=== PATIENT | female | born 1990 | race Caucasian/White ===

== ENCOUNTER 2022-08-11 08:44 | Inpatient (IN) ==
--- NOTE | 2022-07-22 12:15 | PAT Medication Instructions ---
Medication Instructions Date of Service July 22, 2022 Home Medications albuterol sulfate 90 mcg/actuation aerosol inhaler 1 inh inhalation QID PRN sob gabapentin 800 mg tablet 800 mg PO TID 07/21/22 methocarbamol 500 mg tablet 500 mg PO QID 07/21/22 DO NOT take the morning of surgery methocarbamol 500 mg tablet 500 mg PO QID Take morning of surgery With a small sip of water, OTHERWISE NOTHING TO EAT OR DRINK AFTER MIDNIGHT: albuterol sulfate 90 mcg/actuation aerosol inhaler 1 inh inhalation QID PRN sob (use if needed; please bring with you to hospital day of surgery if possible) gabapentin 800 mg tablet 800 mg PO TID Take evening before surgery gabapentin 800 mg tablet 800 mg PO TID methocarbamol 500 mg tablet 500 mg PO QID Other Notes If you have any questions please call us at [phone] or [phone] or [phone] or [phone]
--- NOTE | 2022-07-29 10:49 | Anesthesiology Consultation ---
Date of Service July 29, 2022 Assessment & Plan (1) Encounter for pre-operative examination: - COVID screening: Per assessment on 07/29: No known COVID-19 positive contacts or current COVID-19 related symptoms. Travel screen negative. At surgeon discretion if preop Covid testing being done. - Check test AM DOS - PONV: Scope patch ordered for AM DOS Chart Review Chart Review: Acceptable Risk for Surgery and Patient seen in Pre Admission Testing Teaching & Discussion Pre-Anesthesia Teaching/Discussion Notes: Instructed NPO after midnight before surgery,except medications with 15 cc of water. Medication instructions provided according to the [facility] guidelines. History Surgery Operation Date: 08/11/22 12:25 Proposed Procedures p L5-S1 Decompression and Fusion, L4-L5 Hardware Removal, Spinal Cord Monitoring - Ehsan Smith, Height/Weight Height: 5 ft 6 in Weight: 116 kg Allergies Allergy/AdvReac Type Severity Reaction Status Date / Time human papillomavirus Allergy swelling, Verified 07/21/22 12:16 vaccine, quadr burning at [From Gardasil (PF)] injection site Iodinated Contrast Media Allergy cardiac Verified 07/29/22 11:06 arrest requiring defibrillator (approximately 2009) tramadol Allergy Hives Verified 07/21/22 12:16 Medications Home Medications Medication Instructions Recorded Confirmed Last Taken albuterol sulfate 90 mcg/actuation 1 inh inhalation QID PRN sob 07/21/22 07/21/22 Unknown aerosol inhaler gabapentin 800 mg tablet 800 mg PO TID 07/21/22 07/21/22 Unknown methocarbamol 500 mg tablet 500 mg PO QID 07/21/22 07/21/22 Unknown Past Medical History Medical History (Updated 07/29/22 @ 11:25 by Silvia Pang) Anxiety Asthma Cardiac murmur As child, no murmur noted at PAT visit 07/29/22 DDD (degenerative disc disease) Fatty liver Morbid obesity with BMI of 40.0-44.9, adult Exercise / Class Metabolic Activity II 4-5 Yardwork/Stairs/Walk up hill Past Family History Family History Mother PONV (postoperative nausea and vomiting) Past Surgical History Surgical History History of History of cholecystectomy History of colonoscopy History of discectomy History of esophagogastroduodenoscopy (EGD) History of lumbar fusion 2018 ([facility]) History of tonsillectomy and adenoidectomy PONV (postoperative nausea and vomiting) Past Anesthesia History No Hx of Anesthesia Complications (except PONV) and No Family Hx of Anesthesia Complications (except mother PONV) History of PONV No Hx of Motion Sickness and History of PONV (post-op nausea with several surgeries, single episode post-op vomiting) Social History Smoking Status: Former smoker Do You Dip or Chew Tobacco: No Smoking End Date: Quit 3 years ago Hx Alcohol Use: No Hx Substance Use: No substance use type: does not use Review of Systems Patient denies chest pain, shortness of breath, dyspnea on exertion, fever, chills, cough, wheezing, palpitations. Physical Exam Vital Signs VITALS BP 118/83 P 79 TEMP 98.2 SP02 95%RA RESP 16 PHYSICAL Full cervical extension range of motion. Full TMJ range of motion. TMD 3 finger breaths Mallampati Score 1 Dentition: several missing (sides) Lungs: clear throughout to auscultation Cardiac: regular rate and rhythm, no murmurs noted Spine: normal Carotid arteries: negative bruit Extremities: no edema Lab Results Anesthesia Preop Results Results Anesthesia Widget: WBC 8.79 K/ul (4.8-10.8) 07/29/22 Hgb 13.7 g/dl (12.0-16.0) 07/29/22 Hct 41.9 % (34.1-44.9) 07/29/22 Plt 387 K/uL (130-400) 07/29/22 Na 140 mmol/L (136-145) 07/29/22 K 4.0 mmol/L (3.5-5.1) 07/29/22 Cl 102 mmol/L (98-107) 07/29/22 CO2 34 mmol/L (21-32) H 07/29/22 BUN 8 mg/dl (6-23) 07/29/22 Creat 0.68 mg/dl (0.6-1.2) 07/29/22 Glucose Level 84 mg/dl (70-99(Fasting)) 07/29/22 PT 10.3 Seconds (9.0-12.0) 07/29/22 PTT 26.6 Seconds (21.0-31.0) 07/29/22 INR 1.0 (0.9-1.1) 07/29/22 Urine Color Yellow 07/29/22 Urine Appearance Clear (Clear) 07/29/22 Urine pH 6.0 (4.5-7.5) 07/29/22 Urine Specific Loman 1.012 (1.000-1.030) 07/29/22 Urine Protein Negative (Negative) 07/29/22 Urine Glucose (UA) Negative (Negative) 07/29/22 Urine Ketones Negative (Negative) 07/29/22 Urine Blood Negative (Negative) 07/29/22 Urine Nitrite Negative (Negative) 07/29/22 Urine Bilirubin Negative (Negative) 07/29/22 Urine Urobilinogen Negative (Negative) 07/29/22 Urine Leukocyte Esterase Negative (Negative) 07/29/22 Blood Type O Positive 07/29/22 Antibody Screen NEGATIVE 07/29/22 Testing Electrocardiogram Date: 07/29/22 NSR with sinus arrhythmia at 73bpm. Chest X-Ray Date: 07/29/22 Findings: + NAD COVID-19 Risk Screen Screening Information COVID-19 Screen Date: 07/29/22 Exposure 21 Days Family/Household +COVID Last 21 Days: No Exposure 10 Days Any COVID Exposure Last 10 Days: No Symptoms Last 10 Days Experienced COVID Sx Last 10 Days: No + COVID 0-90 Days COVID + in Last 0-90 Days: No
[~2022-08-11 08:44] MED LIST: ACETAMINOPHEN 500 MG TAB PO SCH; CeleBREX 200 MG CAP PO SCH; GABAPENTIN 900 MG DOSE PO SCH; LR 15ML/HR IV SCH; SCOPOLAMINE 1 MG TDSY TD SCH; ceFAZolin 2000MG 2,000 MG/15 ML SYR IV SCH
[2022-08-11] MEDS ORDERED: ATROPINE SULFATE 0.1 MG/ML 10ML SYR IV PRN (10:07)
[2022-08-11] MEDS ORDERED: ePHEDrine sulfate 50 MG/ML AMP IV PRN (10:07)
[2022-08-11] MEDS ORDERED: ONDANSETRON INJ 2 MG/ML 2 ML VIAL IV PRN ×2 (10:07→15:28)
--- NOTE | 2022-08-11 11:02 | History & Physical Bridge Note ---
Date of Service August 11, 2022 History & Physical Bridge Note I have examined the patient, reviewed the History & Physical and in the interval since the performance of the History & Physical I have noted the following changes of clinical significance: no changes noted
--- NOTE | 2022-08-11 11:03 | History & Physical Report ---
Date of Service August 11, 2022 Assessment & Plan (1) Neurogenic claudication due to lumbar spinal stenosis: Plan: L5-S1 decompression fusion, L4-L5 hardware removal History of Present Illness Chief Complaint: Back and leg pain Primary Care Provider: Lelia Linares MD This is a 32-year-old female presents with chronic persistent back and leg pain and failing course of nonoperative care she is here for surgical invention. Allergies Allergy/AdvReac Type Severity Reaction Status Date / Time coconut Allergy Severe Swelling Verified 08/11/22 09:14 of Lip/Tongue/Throat Iodinated Contrast Media Allergy Severe cardiac Verified 08/11/22 09:14 arrest requiring defibrillator (approximately 2009) human papillomavirus Allergy swelling, Verified 08/11/22 09:10 vaccine, quadr burning at [From Gardasil (PF)] injection site tramadol Allergy Hives Verified 08/11/22 09:10 Home Medications Medication Instructions Recorded Confirmed Type albuterol sulfate 90 mcg/actuation 1 inh inhalation QID PRN sob 07/21/22 08/11/22 History aerosol inhaler gabapentin 800 mg tablet 800 mg PO TID 07/21/22 08/11/22 History methocarbamol 500 mg tablet 500 mg PO QID 07/21/22 08/11/22 History Past Med/Surg History Medical History (Updated 08/11/22 @ 11:02 by Ehsan Smith DO) Anxiety Asthma Cardiac murmur As child, no murmur noted at PAT visit 07/29/22 DDD (degenerative disc disease) Fatty liver Morbid obesity with BMI of 40.0-44.9, adult Surgical History History of History of cholecystectomy History of colonoscopy History of discectomy History of esophagogastroduodenoscopy (EGD) History of lumbar fusion 2017 ([facility]) History of tonsillectomy and adenoidectomy PONV (postoperative nausea and vomiting) Family History Mother PONV (postoperative nausea and vomiting) Social History Smoking Status: Former smoker Smoking End Date: Quit 3 years ago; Second Hand Exposure: No; Do You Dip or Chew Tobacco: No; Tobacco Cessation Education Requested by Patient: No Hx Alcohol Use: No Hx Substance Use: No Preferred Language: Welsh Communication Ability: Effective Interior Design Teacher Required: No Beliefs That Will Affect Care: None Current Living Situation: Spouse Feels Safe at Home: Yes Safety Concerns: Feels Safe At This Time Assistive Devices: Glasses Physical Exam Physical Exam: Patient is alert and oriented Heart regular rhythm Lungs clear Results & Data Results & Data ([facility]) Vital Signs (Past 12 Hours) Vital Signs Temp Pulse Resp BP Pulse Ox O2 Del Method 08/11/22 09:14 36.9 C 77 18 124/81 96 Room Air
[2022-08-11] MEDS ORDERED: ceFAZolin 330 MG/ML 1 GM VIAL ONE (11:17)
[2022-08-11] MEDS ORDERED: BUPIVACAINE/EPINEPHRINE 0.25% 1:200,000 30 ML VIAL ONE (11:17)
[2022-08-11] MEDS ORDERED: MIDAZOLAM HCL 1 MG/ML 2ML VIAL ONE (11:27)
[2022-08-11] MEDS ORDERED: fentaNYL citrate 100 MCG/2 ML VIAL ONE (11:28)
[2022-08-11] MEDS ORDERED: HYDROmorphone INJ 2 MG/ML SYR/VIAL ONE (12:24)
[2022-08-11] MEDS ORDERED: FLOSEAL HEMOSTATIC MATRIX 10ML TOP ONE (12:46)
[2022-08-11] MEDS ORDERED: PROPOFOL IV EMULSION 10 MG/ML 20 ML VIAL IV ONE (12:54)
[2022-08-11] MEDS ORDERED: LIDOCAINE 2% MPF LOCAL 5 ML VIAL INFIL ONE (12:54)
[2022-08-11] MEDS ORDERED: DEXAMETHASONE SOD INJ 4 MG/ML VIAL ONE (12:54)
[2022-08-11] MEDS ORDERED: ROCURONIUM BROMIDE 10 MG/ML 5 ML VIAL IV ONE ×2 (12:54→13:20)
[2022-08-11] MEDS ORDERED: NEOSTIGMINE METHYLSULFATE 1 MG/ML 10ML VIAL ONE (13:32)
[2022-08-11] MEDS ORDERED: ONDANSETRON INJ 2 MG/ML 2 ML VIAL ONE (13:32)
[2022-08-11] MEDS ORDERED: GLYCOPYRROLATE 0.2 MG/ML VIAL ONE (13:32)
--- NOTE | 2022-08-11 13:34 | Operative Report ---
Post Operative Report Pre & Post Diagnosis Operation Date: 08/11/22 10:35 Pre-Op Diagnosis: Neurogenic Claudication due to Lumbar Spinal Stenosis Morbid obesity Lumbar disc herniation Post-Op Diagnosis: Same I identified the patient and participated in the time-out.: Yes Procedure Operation Date: 08/11/22 10:35 Actual Procedures #1 removal of posterior instrumentation L4-L5. #2 exploration of fusion L4-L5 #3 Limited motion bilaterally facetectomy and foraminotomies L5-S1. #4 posterior spinal fusion L5-S1. #5 placement posterior instrumentation L5-S1. #6 interbody fusion L5-S1. #7 placement Spira 12 x 26 mm cage at L5-S1. #8 placement likely locally harvested autograft in the posterior gutters. #9 placement of I factor with vtoss interbody space and posterior lateral gutters. Surgeon Ehsan Smith, DO Tower Helper Shelia Latham Estimated Blood Loss 50 Findings See Below The patient is 5 foot 6 weighing over 114 kg with a BMI in excess of 40. Patient's body was taken to be a significant technical difficulty required to base retractors along instruments in order to perform her procedure. This at least 50% increased the operative time. Specimens None Indications This is a 32-year-old female that presents with left wrist diagnosis after failed course of nonoperative care she is here for the above-mentioned procedure.. Description of Procedure Patient was met with identified informed consent obtained. Patient was then taken to the operative suite underwent patient placed in a prone position on the João table top of some frame. All bony promises well-padded eyes inspected to ensure no external pressure placed upon it. This point the lumbar spine was prepped and draped in normal sterile fashion. Sharp dissection with the assistance of a cardiac performed to exposing the posterior instrumentation to the L4-L5 and the lamina of L5 and sacral ala bilaterally. Procedure remove the hardware bilaterally at L4-L5 explored the fusion mass noting it to be mature and intact. Then form a complete laminectomy of L5 including bilateral medial facetectomy and foraminotomies to address severe spinal stenosis. There is also massive central disc herniation that was addressed. Pedicle screws were then placed in the L5 and S1 levels bilaterally with assistance of fluoroscopy and the properly sized devon placed. Bilateral transforaminal approach on the right discectomy of L5-S1 was performed endplates corrected to subcortical bleeding bone and a 12 x 26 mm Spira cage with I factor tapped in position. The rods and locked into final position bilaterally. The transverse processes of L5 and sacral ala burred to subcortical bleeding bone I factor combined with locally harvested morselized autograft was placed in the posterior gutters. 15 round JENNY drain inserted. The incision was then closed with 1 Vicryl in the fascia 2-0 Vicryl subcutaneously and 4 Monocryl for final skin closure. Steri-Strips sterile dressings placed. Patient awakened taken to PACU in stable condition. Please note spinal cord monitoring was utilized at the procedure no changes noted. Last Shelia Latham was present at the entire procedure on the patient positioning complex portions of the surgery and possible closure. I attest to the content of the Intraoperative Record and any orders documented therein. Any exceptions are noted below.
[2022-08-11] MEDS: fentaNYL citrate 100 MCG/2 ML VIAL IV PRN ×3 (13:57→14:05)
[2022-08-11] MEDS: HYDROmorphone INJ 2 MG/ML SYR/VIAL IV PRN ×2 (14:20→14:35)
--- NOTE | 2022-08-11 14:33 | Fluoroscopy Report ---
FL lumbar spine 2-3V CLINICAL HISTORY: L5-S1 Decompression/Fusion, L4-L5 hardware removal COMPARISON STUDY: None. FLUOROSCOPY TIME: 23.8 seconds. EXPOSURE DOSE: 37.51 mGy FLUOROSCOPIC IMAGES: 2 FINDINGS: Fluoroscopy was provided during removal of the L4 and L5 screws. Previous L4-L5 interbody s pacer is noted. Interval L5-S1 discectomy with interbody spacer placement of posterior decompression is noted. Hardware is intact. IMPRESSION: Fluoroscopy provided during hardware removal and L5-S1 discectomy, posterior decompressi on and bilateral pedicle screw fusion. ACT 112: Negative or not required by law. Electronically signed by: Ulisses Paul M.D. 08/11/2022 2:32 PM
[2022-08-11] MEDS ORDERED: LORazepam 2 MG/1 ML VIAL IV STA (14:34)
[2022-08-11] MEDS ORDERED: LORazepam 2 MG/1 ML VIAL ONE (14:38)
[2022-08-11] MEDS: CHECK SCOPOLAMINE PATCH PLACEMENT SCH ×2 (14:45→16:23)
[2022-08-11] MEDS ORDERED: ACETAMINOPHEN 500 MG TAB PO PRN (15:28)
[2022-08-11] MEDS ORDERED: MAGNESIUM HYDROXIDE SUSP 30 ML UDC PO PRN (15:28)
[2022-08-11] MEDS ORDERED: LORazepam 2 MG/1 ML VIAL IV PRN (15:28)
[2022-08-11] MEDS ORDERED: LORazepam 0.5 MG TAB PO PRN (15:28)
[2022-08-11] MEDS ORDERED: ONDANSETRON 4 MG OD TAB PO PRN (15:28)
[2022-08-11] MEDS ORDERED: FAMOTIDINE 20 MG TAB PO PRN (15:28)
[2022-08-11] MEDS ORDERED: bisacodyL 10 MG SUPP PR PRN (15:28)
[2022-08-11] MEDS ORDERED: METOCLOPRAMIDE HCL INJ 5 MG/ML 2 ML VIAL IV PRN (15:28)
[2022-08-11] MEDS ORDERED: DO NOT ADMINISTER FLU VACCINE PRN (15:28)
[2022-08-11] MEDS ORDERED: ALBUTEROL HFA 8 GM INHALER INH PRN (15:28)
[2022-08-11] MEDS ORDERED: hydrOXYzine HCl 25 MG TAB PO PRN (15:28)
[2022-08-11] MEDS ORDERED: ALUMINUM/MAGNESIUM SUSP 30 ML UDC PO PRN (15:28)
[2022-08-11] MEDS ORDERED: DO NOT ADMINISTER PNEUMOCOCCAL VACCINE PRN (15:28)
[2022-08-11] MEDS ORDERED: diphenhydrAMINE Capsule 25 MG CAP PO PRN (15:28)
[2022-08-11] MEDS ORDERED: SOD PHOSPHATE/SOD BIPHOSPHATE ENEMA 132 ML BTL PR PRN (15:28)
[2022-08-11] MEDS ORDERED: PROMETHAZINE HCL 12.5 MG in SODIUM CHLORIDE 0.9% 50 ML IV PRN (15:28)
[2022-08-11] MEDS ORDERED: NALOXONE HCL 0.4 MG/1 ML VIAL/CARP IV PRN (15:28)
[2022-08-11] MEDS ORDERED: ACETAMINOPHEN 1,000 MG/100 ML VIAL IV PRN (15:28)
[2022-08-11] MEDS: dexAMETHasone 6 MG in SYRINGE 0 ML IV SCH ×2 (16:23→22:50)
[2022-08-11] MEDS: LACTATED RINGER'S 1,000 ML IV SCH ×2 (16:23→21:43)
[2022-08-11] MEDS: GABAPENTIN 800 MG TAB PO SCH ×2 (16:24→21:39)
[2022-08-11] MEDS: METHOCARBAMOL 500 MG TABLET PO SCH ×2 (16:33→21:40)
[2022-08-11] MEDS: HYDROmorphone INJ 0.5 MG/0.5 ML SYR IV PRN (16:36)
--- NOTE | 2022-08-11 17:02 | Anesthesiology Progress Note ---
Date of Service August 11, 2022 Anesthesia Post Procedure Vital Signs Vital Signs: Temp Pulse Pulse Resp BP Pulse Ox O2 Del Method 08/11/22 16:27 36.8 C 78 18 138/66 95 Nasal Cannula 08/11/22 16:05 36.7 C 62 17 111/70 97 Nasal Cannula 08/11/22 15:28 36.8 C 76 18 122/68 95 Nasal Cannula 08/11/22 14:50 52 L 12 133/80 92 Nasal Cannula 08/11/22 14:40 59 L 21 154/82 H 100 Nasal Cannula 08/11/22 14:30 71 21 185/85 H 100 Nasal Cannula 08/11/22 14:20 72 15 150/84 H 100 Nasal Cannula 08/11/22 14:10 68 22 149/96 H 100 Nasal Cannula 08/11/22 14:00 73 23 159/101 H 93 Nasal Cannula 08/11/22 13:51 36.0 C L 80 22 142/88 H 95 Oxymask 08/11/22 09:14 36.9 C 77 18 124/81 96 Room Air O2 Flow Rate 08/11/22 16:27 1 08/11/22 16:05 1 08/11/22 15:28 1 08/11/22 14:50 4 08/11/22 14:40 4 08/11/22 14:30 4 08/11/22 14:20 4 08/11/22 14:10 4 08/11/22 14:00 4 08/11/22 13:51 5 08/11/22 09:14 Pain Intensity Lower Back: Pain Intensity: 10 Transfer of Care Handoff Completed per policy Notes Mental Status: alert / awake / arousable and participated in evaluation Patient Amnestic to Procedure: Yes Nausea / Vomiting: adequately controlled Pain: adequately controlled Airway Patency, RR, SpO2: stable & adequate BP & HR: stable & adequate Hydration State: stable & adequate Anesthetic Complications: no major complications apparent and Pt Satisfied with anesthetic care
[2022-08-11] MEDS: ceFAZolin 2000MG 2,000 MG/15 ML SYR IV SCH (19:33)
[2022-08-11] MEDS: HYDROmorphone INJ 1 MG/ML SYRINGE IV PRN ×2 (19:33→22:49)
[2022-08-11] MEDS: DOCUSATE SODIUM/SENNA 50/8.6MG TAB PO SCH (21:39)
[2022-08-11] MEDS: oxyCODONE HCL IR 5 MG TAB (IMMEDIATE RELEASE) PO PRN (21:48)
[2022-08-12] MEDS: HYDROmorphone INJ 1 MG/ML SYRINGE IV PRN ×3 (03:10→20:21)
[2022-08-12] MEDS: ceFAZolin 2000MG 2,000 MG/15 ML SYR IV SCH (03:10)
[2022-08-12] MEDS: oxyCODONE HCL IR 5 MG TAB (IMMEDIATE RELEASE) PO PRN ×5 (03:43→22:33)
[2022-08-12] MEDS: POLYETHYLENE (MIRALAX) 17 GM PACK PO SCH ×3 (06:02→17:25)
[2022-08-12 06:47] LABS: Basophils # (auto) 0.01 K/uL (0-0.2); Basophils % (auto) 0.1 %; Hematocrit (blood only) 36.7 % (37.0-47.0); Hemoglobin 11.9 g/dl (12.0-16.0); Immature Granulocytes # (auto) 0.04 K/uL (0.01-0.20); Immature Granulocytes % (auto) 0.4 %; Lymphocytes # (auto) 1.02 K/uL (1.2-3.4); Lymphocytes % (auto) 10.3 %; Mean Corpuscular Hemoglobin 28.3 pg (25.0-34.0); Mean Corpuscular Hgb Conc 32.4 g/dL (32.0-36.0); Mean Corpuscular Volume 87.2 fL (80.0-100.0); Mean Platelet Volume 10.8 fL (9.4-12.4); Monocytes # (auto) 0.29 K/uL (0.11-0.59); Monocytes % (auto) 2.9 %; Neutrophils # (auto) 8.51 K/uL (1.40-6.50); Neutrophils % (auto) 86.3 %; Platelet Count 277 K/uL (130-400); RDW Coefficient of Variation 12.7 % (11.5-14.5); RDW Standard Deviation 40.4 fL (36.4-46.3); Red Blood Count 4.21 M/uL (4.20-5.40); White Blood Count 9.87 K/ul (4.8-10.8)
[2022-08-12] MEDS: dexAMETHasone 6 MG in SYRINGE 0 ML IV SCH (07:29)
[2022-08-12] MEDS: METHOCARBAMOL 500 MG TABLET PO SCH ×4 (07:30→20:21)
[2022-08-12] MEDS: GABAPENTIN 800 MG TAB PO SCH ×3 (07:30→20:21)
--- NOTE | 2022-08-12 08:17 | Orthopedic Progress Note ---
Date of Service August 12, 2022 Assessment & Plan (1) Neurogenic claudication due to lumbar spinal stenosis: Plan: At this time we will initiate physical therapy monitor JENNY operatively discharge home next day or so. Admission and Anticipated Discharge Date Admission Date: August 11, 2022 Subjective Back pain controlled leg symptoms improved Physical Exam Physical Exam: Patient is in bed. Peers comfortable. Specimen to testing. Results & Data ([facility]) Vital Signs (Past 12 Hours) Vital Signs Temp Pulse Resp BP BP Pulse Ox O2 Del Method 08/12/22 07:36 36.8 C 80 18 122/79 98 Room Air 08/12/22 03:14 37 C 84 20 104/61 98 Room Air 08/11/22 22:25 36.8 C 81 18 112/73 95 Room Air 08/11/22 20:22 37.3 C 75 20 115/72 95 Room Air
[2022-08-12 08:24] LABS: BUN Creatinine Ratio 13.6 (10-20); Creatinine Clr Calc Pharmacy 175.3 ml/min; Est GFR (African American) 139.6 ml/min; Est GFR (Non-African American) 120.4 ml/min
[2022-08-12] MEDS: HYDROmorphone INJ 0.5 MG/0.5 ML SYR IV PRN ×2 (10:06→15:50)
[2022-08-12] MEDS: DOCUSATE SODIUM/SENNA 50/8.6MG TAB PO SCH (20:21)
[2022-08-13] MEDS: oxyCODONE HCL IR 5 MG TAB (IMMEDIATE RELEASE) PO PRN ×3 (04:38→12:59)
[2022-08-13] MEDS: METHOCARBAMOL 500 MG TABLET PO SCH (08:37)
[2022-08-13] MEDS: GABAPENTIN 800 MG TAB PO SCH (08:37)
--- NOTE | 2022-08-13 09:44 | Discharge Summary ---
Date of Service August 13, 2022 Admission HPI Per Admitting Provider This is a 32-year-old female presents with chronic persistent back and leg pain and failing course of nonoperative care she is here for surgical invention. Principal Diagnosis Lumbar spinal stenosis with neurogenic claudication Discharge Data Allergies Allergy/AdvReac Type Severity Reaction Status Date / Time coconut Allergy Severe Swelling Verified 08/11/22 09:14 of Lip/Tongue/Throat Iodinated Contrast Media Allergy Severe cardiac Verified 08/11/22 09:14 arrest requiring defibrillator (approximately 2009) human papillomavirus Allergy swelling, Verified 08/11/22 09:10 vaccine, quadr burning at [From Gardasil (PF)] injection site tramadol Allergy Hives Verified 08/11/22 09:10 Procedures Performed Operation Date: 08/11/22 10:35 Actual Procedures p L5-S1 Decompression and Fusion, Spinal Cord Monitoring(Not Applicable) - Ehsan Smith DO s L4-L5 Hardware Removal,(Not Applicable) - Ehsan Smith DO Ordered Studies 08/11/22 [place] lumbar spine 2-3V Routine Hospital Course (1) Neurogenic claudication due to lumbar spinal stenosis: Patient with lumbar decompression fusion at [facility] orthopedic for postoperative. Postop day 1 she was up and ambulating progress postop day #2. Pain controlled. Excellent strength testing. JENNY drain decreasing appropriately. Subsequent discharge home. Discharge orders and instructions found in chart for further review. Total Time Total Time Spent Total Time Spent (In Minutes): 20 minutes Discharge Plan Discharge Items Patient Disposition: Home - Self-Care Reason For Visit: POST OP Discharge Diagnosis: Lumbar spinal stenosis with radiculopathy Activity: As commented below Non-emergency contact: Primary Care Provider Call non-emergency contact if: you have any medication questions Follow-up/Referrals: Lelia Linares MD [Primary Care Provider] - Diet: Regular Addtl Attending Provider Instructions: ACTIVITY RECOMMENDATIONS: SELF CARE INSTRUCTIONS AFTER THORACIC/LUMBAR FUSIONS 1. You may walk to your tolerance. It is good exercise for your legs and back. Expect some back and intermittent leg aches and pains. 2. You may perform "counter-top" level activities (make a sandwich, angelika with a project, etc.). 3. No bending or lifting of more than 10 pounds or back twisting of any nature (roll like a log when turning in bed). 4. You may ride in a car for 20-30 minutes at a time. No driving until after your first visit with your doctor. 5. Frequent changes of position and restricting sitting to 30 minutes at a time will help limit the amount of back spasms and stiffness you may experience. 6. You may discontinue the use of ambulatory aids (cane, crutches, etc.) once your strength and confidence allow. 7. You may way inspector the shower and let water strike your incision when you arrive home at least once daily. Do not take a tub bath, sit in a hot tub or go into a swimming pool until after your first recheck in the office. SPECIAL CARE INSTRUCTIONS: VERY IMPORTANT TO READ AND REVIEW A. Your surgical incision has been closed with a cosmetic suture under the skin that will dissolve in about 6 weeks. In 14 days, you can use a pair of clean scissors and cut the suture that is left outside of the skin at the ends of your incision. 1. The small skin tapes can be removed 7 days after surgery if they have not fallen off by that point. 2. You may keep the wound open to air as much as possible to promote healing after post-op day number 5 unless told otherwise by your doctor. 3. If you think the wound looks like it is becoming infected (redness or worsening drainage) and/or you are experiencing fever, chill or worsening back pain and muscle spasms, contact the office so that we may evaluate you as soon as possible. B. Complications are uncommon, but please contact us if you have any signs or symptoms of: 1. wound infection (fever higher than 102.5 degrees F, redness, separation of wound, drainage, or increasing pain from the incision) 2. blood clots in legs (pain, swelling, redness and warmth in legs) 3. urinary tract infection (fever higher than 102.5 degrees F, burning upon urination or increased frequency of urination) 4. nerve problems (inability to walk on your toes or heels, numbness, loss of bowel or bladder control) 5. any other symptoms that concern you C. Please call the office at if you have any concerns or questions about your operation or recovery. D. No smoking! Smoking drastically decreases the chance of a solid fusion. E. Do not take any anti-inflammatory medications (Indocin, Advil, Motrin, Aspirin, Naprosyn, etc.) as these may inhibit the chance of a solid fusion. Tylenol is okay to take for pain. MANAGING PAIN AFTER SPINAL SURGERY 1. Narcotic medication is intended for short-term use and will be provided for surgical pain. Surgical pain usually lasts for a period of 4-6 weeks. Narcotic medication includes Percocet, Vicodin, Darvocet, Tylenol #3 or Lortab. 2. Longer-term pain is more appropriately treated with non-narcotic medication such as Tylenol ES. 3. Muscle spasm is not appropriately treated with narcotics. Muscle relaxers such as Soma, Flexeril or Skelaxin can be used along with Tylenol ES. 4. Remember that we all live with some "aches and pains". This is not unusual or uncommon after an injury or as we get older. a. Back pain is expected and may include muscle spasms for 4 to 6 weeks after surgery. The pain should gradually improve. If the pain worsens for no apparent reason, please contact the office. b. Intermittent leg pain may also be experienced and should not be concerned about unless it worsens for no apparent reason. If so, please contact the office. 5. We will provide appropriate medication within the normal guidelines of their prescribed use. We will also be very cautious and aware of potential abuse and extended duration of patients' medication needs. a. Pain medications are for your comfort and to assist with sleep and rest so that the tissue can heal. They are not provided in order to return to normal activity and should not be used through the day. To do so or worsening pain at night can result from ongoing tissue damage and development of tolerance to the prescribed medicine. 6. Please allow 2-3 days to process refills. Prescriptions will not be mailed but must be picked up at the office. FOLLOW UP VISIT: Keep your scheduled follow-up appointment. Any questions, please call the office at . Pending Studies at Discharge: No Stand-Alone Forms: [employer], Smoking Cessation Medications and DC Order Prescriptions: New oxycodone 5 mg tablet 5 mg PO Q6H PRN (Reason: pain, severe) Qty: 30 0RF Continued methocarbamol 500 mg Tablet 500 mg PO QID gabapentin 800 mg Tablet 800 mg PO TID albuterol sulfate 90 mcg/actuation Hfa Aerosol Inhaler 1 inh INHALATION QID PRN (Reason: sob) Discharge Orders: Discharge Order (Routine); Ordered 08/13/22 Ordered By: Ehsan Smith Admission Data Admit Date/Time: 08/11/22 13:38 Attending Provider: Ehsan Smith Admit Provider: Ehsan Smith Primary Care Provider: Lelia Linares
[2022-08-13] MEDS: HYDROmorphone INJ 1 MG/ML SYRINGE IV PRN (10:02)
[2022-08-13] MEDS: HYDROmorphone INJ 0.5 MG/0.5 ML SYR IV PRN (12:59)
== END 2022-08-13 13:20 | disposition home or self-care (01) | DRG 454 ==
LOC: ASU 08:44 → 3E 13:38

== ENCOUNTER 2022-12-01 09:57 | Observation (INO) ==
--- NOTE | 2022-11-26 14:33 | Anesthesiology Consultation ---
Date of Service November 26, 2022 Assessment & Plan (1) Encounter for pre-operative examination: Chart Review Chart Review: Acceptable Risk for Surgery (pending negative COVID antigen test prior to day of surgery) and Patient NOT seen in Pre Admission Testing Most Recent Anesthesia Experience: 08/11/22 Lumbar Decompression/Fusion, hardware removal: GA: MAC#3, ETT#7, GrView1, atraumatic attempt x 1 COVID screening: Per PAT nursing assessment on 11/26/22, No known COVID-19 positive contacts. Pt did have mild symptoms 'mid september 2022' and tested positive for COVID via home test. She is also reporting recent 'low grade fevers on and off' as well as current nasal congestion. D/W and pt will complete a COVID antigen test prior to surgery to ensure that current sx are not related to a current COVID infestion. Travel screen negative. Patient NOT vacci nated for Covid. BMP to be done AM of surgery History Surgery Operation Date: 12/01/22 13:45 Proposed Procedures p Lumbar Incision and Drainage - Ehsan Smith DO Height/Weight Height: 5 ft 6 in Weight: 113.398 kg Allergies Allergy/AdvReac Type Severity Reaction Status Date / Time coconut Allergy Severe Swelling Verified 11/26/22 13:11 of Lip/Tongue/Throat Iodinated Contrast Media Allergy Severe cardiac Verified 11/26/22 13:11 arrest requiring defibrillator (approximately 2009) human papillomavirus Allergy Intermediate swelling, Verified 11/26/22 13:11 vaccine, quadr burning at [From Gardasil (PF)] injection site tramadol Allergy Intermediate Hives Verified 11/26/22 13:11 Medications Home Medications Medication Instructions Recorded Confirmed Last Taken albuterol sulfate 90 mcg/actuation 1 inh inhalation QID PRN sob 07/21/22 11/26/22 Unknown aerosol inhaler gabapentin 800 mg tablet 800 mg PO TID 07/21/22 11/26/22 08/10/22 21:00 desvenlafaxine succinate 50 mg 50 mg PO QAM 11/26/22 11/26/22 Unknown tablet,extended release 24 hr (Pristiq) meloxicam 7.5 mg tablet 15 mg PO QPM 11/26/22 11/26/22 Unknown methocarbamol 750 mg tablet 750 mg PO QID 11/26/22 11/26/22 Unknown Past Medical History Medical History (Updated 11/26/22 @ 14:30 by Mona Owens PA-C) Anxiety Asthma Cardiac murmur As child, no murmur noted at PAT visit 07/29/22 DDD (degenerative disc disease) Fatty liver History of COVID-19 x3--last diagnosed middle of 09/2022 via HOME test--lost smell/taste, congestion/cough, headache, full body aches/fatigue: all symptoms have resolved Morbid obesity with BMI of 40.0-44.9, adult Postoperative complication postop seroma formation from 08/11/22 lumbar surgery (reason for 11/2022 surgery) Past Family History Family History Mother PONV (postoperative nausea and vomiting) Past Surgical History Surgical History (Updated 11/26/22 @ 14:30 by Mona Owens PA-C) History of History of cholecystectomy History of colonoscopy History of discectomy History of esophagogastroduodenoscopy (EGD) History of lumbar fusion x2--last 08/11/22 @ [facility] Dr. Smith (GA: MAC#3, ETT#7, GrView1, atraumatic attempt x 1); prior was 2017 @[facility] History of tonsillectomy and adenoidectomy PONV (postoperative nausea and vomiting) Social History Smoking Status: Current some day smoker tobacco type: e-cigarettes Smoking cigarettes per day: vaps intermittently (advised on policy) Do You Dip or Chew Tobacco: No Hx Alcohol Use: No Hx Substance Use: No substance use type: does not use Testing Laboratory Results 11/24/22: WBC: 8.56 H/H: 13.3/43.5 PLATELETS: 335 Electrocardiogram Date: 07/29/22 NSR with sinus arrhythmia, 73bpm Chest X-Ray Date: 07/29/22 Findings: + NAD
[~2022-12-01 09:57] MED LIST changes: -SCOPOLAMINE 1 MG TDSY TD SCH
[2022-12-01] MEDS ORDERED: ROCURONIUM BROMIDE 10 MG/ML 5 ML VIAL IV ONE (10:35)
[2022-12-01] MEDS ORDERED: PROPOFOL IV EMULSION 10 MG/ML 20 ML VIAL IV ONE (10:35)
[2022-12-01] MEDS ORDERED: DEXAMETHASONE SOD INJ 4 MG/ML VIAL ONE (10:35)
[2022-12-01] MEDS ORDERED: ONDANSETRON INJ 2 MG/ML 2 ML VIAL ONE (10:35)
[2022-12-01] MEDS ORDERED: MIDAZOLAM HCL 1 MG/ML 2ML VIAL ONE (10:35)
[2022-12-01] MEDS ORDERED: fentaNYL citrate PF 100 MCG/2 ML VIAL ONE (10:35)
[2022-12-01] MEDS ORDERED: LIDOCAINE 2% 2 ML VIAL/AMP(20MG/ML) INFIL ONE (10:35)
[2022-12-01 10:49] LABS: Calcium 9.1 mg/dl (8.6-10.3); Potassium 4.2 mmol/L (3.5-5.1)
[2022-12-01 10:55] LABS: BUN Creatinine Ratio 16.2 (10-20); Creatinine Clr Calc Pharmacy 156.2 ml/min; Est GFR (African American) 133.2 ml/min; Est GFR (Non-African American) 114.9 ml/min; Pregnancy Test, Serum Negative (Negative)
[2022-12-01] MEDS ORDERED: PROMETHAZINE HCL 6.25 MG in SODIUM CHLORIDE 0.9% 50 ML IV PRN (11:20)
[2022-12-01] MEDS ORDERED: ATROPINE SULFATE 0.1 MG/ML 10ML SYR IV PRN (11:20)
[2022-12-01] MEDS ORDERED: ONDANSETRON INJ 2 MG/ML 2 ML VIAL IV PRN ×2 (11:20→15:10)
[2022-12-01] MEDS ORDERED: ePHEDrine sulfate 50 MG/ML AMP IV PRN (11:20)
[2022-12-01] MEDS ORDERED: ePHEDrine sulfate 50 MG/ML AMP ONE (11:21)
--- NOTE | 2022-12-01 11:57 | History & Physical Bridge Note ---
Date of Service December 01, 2022 History & Physical Bridge Note I have examined the patient, reviewed the History & Physical and in the interval since the performance of the History & Physical I have noted the following changes of clinical significance: no changes noted
--- NOTE | 2022-12-01 11:58 | History & Physical Report ---
Date of Service December 01, 2022 Assessment & Plan (1) Neurogenic claudication due to lumbar spinal stenosis: Plan: Lumbar incision and drainage History of Present Illness Chief Complaint: Chronic postop back pain Primary Care Provider: Lelia Linares MD This is a 32-year-old female status post decompression fusion with continued pain and high inflammatory markers concerning for infection. She is here for I&D. Allergies Allergy/AdvReac Type Severity Reaction Status Date / Time coconut Allergy Severe Swelling Verified 12/01/22 10:23 of Lip/Tongue/Throat Iodinated Contrast Media Allergy Severe cardiac Verified 12/01/22 10:23 arrest requiring defibrillator (approximately 2009) human papillomavirus Allergy Intermediate swelling, Verified 12/01/22 10:23 vaccine, quadr burning at [From Gardasil (PF)] injection site tramadol Allergy Intermediate Hives Verified 12/01/22 10:23 Home Medications Medication Instructions Recorded Confirmed Type albuterol sulfate 90 mcg/actuation 1 inh inhalation QID PRN sob 07/21/22 12/01/22 History aerosol inhaler gabapentin 800 mg tablet 800 mg PO TID 07/21/22 12/01/22 History desvenlafaxine succinate 50 mg 50 mg PO QAM 11/26/22 12/01/22 History tablet,extended release 24 hr (Pristiq) meloxicam 7.5 mg tablet 15 mg PO QPM 11/26/22 12/01/22 History methocarbamol 750 mg tablet 750 mg PO QID 11/26/22 12/01/22 History Past Med/Surg History Medical History Anxiety Asthma Cardiac murmur As child, no murmur noted at PAT visit 07/29/22 DDD (degenerative disc disease) Fatty liver History of COVID-19 x3--last diagnosed middle of 09/2022 via HOME test--lost smell/taste, congestion/cough, headache, full body aches/fatigue: all symptoms have resolved Morbid obesity with BMI of 40.0-44.9, adult Postoperative complication postop seroma formation from 08/11/22 lumbar surgery (reason for 11/2022 surgery) Surgical History History of History of cholecystectomy History of colonoscopy History of discectomy History of esophagogastroduodenoscopy (EGD) History of lumbar fusion x2--last 08/11/22 @ [facility] Dr. 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
[2022-12-01] MEDS ORDERED: GENTAMICIN SULFATE 40 MG/ML 2 ML VIAL ONE (12:05)
[2022-12-01] MEDS ORDERED: VANCOMYCIN HCL 1000MG/20ML VIAL ONE (12:06)
[2022-12-01] MEDS ORDERED: BUPIVACAINE/EPINEPHRINE 0.25% 1:200,000 30 ML VIAL ONE (12:06)
[2022-12-01] MEDS ORDERED: ceFAZolin 330 MG/ML 1 GM VIAL ONE (12:06)
[2022-12-01] MEDS ORDERED: SCOPOLAMINE 1 MG TDSY TD ONE (12:16)
[2022-12-01] MEDS ORDERED: HYDROmorphone INJ 2 MG/ML SYR/VIAL ONE ×2 (13:07→13:27)
--- NOTE | 2022-12-01 13:12 | Operative Report ---
Post Operative Report Pre & Post Diagnosis Operation Date: 12/01/22 11:15 Pre-Op Diagnosis: Infection Following a Procedure Post-Op Diagnosis: Evacuation of seroma I identified the patient and participated in the time-out.: Yes Procedure Operation Date: 12/01/22 11:15 Actual Procedures Incision and drainage for lumbar seroma Surgeon Ehsan Smith DO Hog Scalder Shelia Latham Estimated Blood Loss 10 Findings See Below The patient had evidence of a organized seroma. Cultures were obtained. No evidence of gross infection or tissue breakdown was noted. Specimens Cultures of the epidural space Indications This is a 32-year-old female status post lumbar decompression fusion with evidence of possible infection and fluid collection is here for I&D. Description of Procedure Patient met with identified informed consent obtained. Patient was then taken to the operative suite underwent patient placed in a prone position jacks table top Surya frame. All bony promises well-padded eyes inspected to ensure no external pressure placed upon the. This point the lumbar spine was prepped draped normal sterile fashion. Sharp dissection with the assistance of Bovie cautery form down to and exposing the epidural space. Evidence of an organized seroma was noted it was clear fluid. There was no evidence of tissue breakdown or gross infection. Cultures were obtained. Then placed approximately 10 cc of Stimulan beads impregnated with vancomycin gentamicin throughout the incision. 15 round JENNY drain inserted. The incision was then closed with subcutaneous Vicryl and 4 Monocryl for final skin closure. Steri-Strip sterile dressings placed. Patient awakened taken to PACU in stable condition. Please note Shelia Latham was present at the entire surgery involved patient positioning complex portions of the surgery and final skin closure. I attest to the content of the Intraoperative Record and any orders documented therein. Any exceptions are noted below.
[2022-12-01] MEDS ORDERED: SUGAMMADEX SODIUM 200 MG/2 ML VIAL IV ONE (13:13)
[2022-12-01] MEDS: fentaNYL citrate PF 100 MCG/2 ML VIAL IV PRN ×2 (13:38→13:43)
[2022-12-01] MEDS: HYDROmorphone INJ 2 MG/ML SYR/VIAL IV PRN ×4 (13:52→14:08)
[2022-12-01] MEDS ORDERED: HYDROmorphone INJ 2 MG/ML SYR/VIAL IV PRN (14:24)
--- NOTE | 2022-12-01 14:24 | Anesthesiology Progress Note ---
Date of Service December 01, 2022 Anesthesia Post Procedure Vital Signs Vital Signs: Temp Pulse Pulse Resp BP Pulse Ox O2 Del Method 12/01/22 14:10 65 15 128/73 96 Room Air 12/01/22 14:00 78 25 H 132/94 93 Room Air 12/01/22 13:50 70 16 148/80 H 94 Room Air 12/01/22 13:40 67 12 142/89 H 100 Oxymask 12/01/22 13:33 36.8 C 64 25 H 149/89 H 100 Oxymask 12/01/22 10:15 36.8 C 76 20 140/82 99 Room Air O2 Flow Rate 12/01/22 14:10 12/01/22 14:00 12/01/22 13:50 12/01/22 13:40 6 12/01/22 13:33 6 12/01/22 10:15 Pain Intensity Left Back: Pain Intensity: 7 Back: Pain Intensity: 5 Transfer of Care Handoff Completed per policy Notes Mental Status: alert / awake / arousable Patient Amnestic to Procedure: Yes Nausea / Vomiting: adequately controlled Pain: adequately controlled Airway Patency, RR, SpO2: stable & adequate BP & HR: stable & adequate Hydration State: stable & adequate Anesthetic Complications: no major complications apparent
[2022-12-01] MEDS ORDERED: DO NOT ADMINISTER PNEUMOCOCCAL VACCINE PRN (15:10)
[2022-12-01] MEDS ORDERED: ACETAMINOPHEN 500 MG TAB PO PRN (15:10)
[2022-12-01] MEDS ORDERED: KETOROLAC 30 MG/ML VIAL IV PRN (15:10)
[2022-12-01] MEDS ORDERED: hydrOXYzine HCl 25 MG TAB PO PRN (15:10)
[2022-12-01] MEDS ORDERED: ALBUTEROL HFA 8 GM INHALER INH PRN (15:10)
[2022-12-01] MEDS ORDERED: ONDANSETRON 4 MG OD TAB PO PRN (15:10)
[2022-12-01] MEDS ORDERED: diphenhydrAMINE Capsule 25 MG CAP PO PRN (15:10)
[2022-12-01] MEDS ORDERED: METOCLOPRAMIDE HCL INJ 5 MG/ML 2 ML VIAL IV PRN (15:10)
[2022-12-01] MEDS ORDERED: NALOXONE HCL 0.4 MG/1 ML VIAL/CARP IV PRN (15:10)
[2022-12-01] MEDS ORDERED: LORazepam 2 MG/1 ML VIAL IV PRN (15:10)
[2022-12-01] MEDS ORDERED: ACETAMINOPHEN 1,000 MG/100 ML VIAL IV PRN (15:10)
[2022-12-01] MEDS ORDERED: ALUMINUM/MAGNESIUM SUSP 30 ML UDC PO PRN (15:10)
[2022-12-01] MEDS ORDERED: bisacodyL 10 MG SUPP PR PRN (15:10)
[2022-12-01] MEDS ORDERED: FAMOTIDINE 20 MG TAB PO PRN (15:10)
[2022-12-01] MEDS ORDERED: PROMETHAZINE HCL 12.5 MG in SODIUM CHLORIDE 0.9% 50 ML IV PRN (15:10)
[2022-12-01] MEDS ORDERED: DO NOT ADMINISTER FLU VACCINE PRN (15:10)
[2022-12-01] MEDS ORDERED: MAGNESIUM HYDROXIDE SUSP 30 ML UDC PO PRN (15:10)
[2022-12-01] MEDS ORDERED: SOD PHOSPHATE/SOD BIPHOSPHATE ENEMA 132 ML BTL PR PRN (15:10)
[2022-12-01] MEDS ORDERED: HYDROmorphone INJ 0.5 MG/0.5 ML SYR IV PRN (15:10)
[2022-12-01] MEDS ORDERED: LORazepam 0.5 MG TAB PO PRN (15:10)
[2022-12-01] MEDS: LACTATED RINGER'S 1,000 ML IV SCH ×2 (15:31→19:43)
[2022-12-01] MEDS: HYDROmorphone INJ 1 MG/ML SYRINGE IV PRN ×2 (15:54→19:39)
[2022-12-01] MEDS: GABAPENTIN 800 MG TAB PO SCH ×2 (16:24→20:36)
[2022-12-01] MEDS: [UNRECOGNIZED DRUG - REMARK] SCH ×2 (16:25→23:35)
[2022-12-01] MEDS: METHOCARBAMOL 750 MG TABLET PO SCH ×2 (16:25→20:36)
[2022-12-01] MEDS: oxyCODONE HCL IR 5 MG TAB (IMMEDIATE RELEASE) PO PRN ×2 (17:19→22:43)
[2022-12-01] MEDS: ceFAZolin 2000MG 2,000 MG/15 ML SYR IV SCH (19:41)
[2022-12-01] MEDS ORDERED: DOCUSATE SODIUM/SENNA 50/8.6MG TAB PO SCH (21:00)
[2022-12-02] MEDS: HYDROmorphone INJ 1 MG/ML SYRINGE IV PRN ×2 (01:09→09:14)
[2022-12-02] MEDS: LACTATED RINGER'S 1,000 ML IV SCH (01:29)
[2022-12-02] MEDS: oxyCODONE HCL IR 5 MG TAB (IMMEDIATE RELEASE) PO PRN ×4 (03:10→15:02)
[2022-12-02] MEDS: ceFAZolin 2000MG 2,000 MG/15 ML SYR IV SCH (03:31)
[2022-12-02] MEDS: POLYETHYLENE (MIRALAX) 17 GM PACK PO SCH ×2 (06:39→11:38)
[2022-12-02] MEDS: [UNRECOGNIZED DRUG - REMARK] SCH (07:39)
[2022-12-02] MEDS: METHOCARBAMOL 750 MG TABLET PO SCH ×2 (09:04→12:48)
[2022-12-02] MEDS: GABAPENTIN 800 MG TAB PO SCH ×2 (09:04→14:18)
--- NOTE | 2022-12-02 09:49 | Discharge Summary ---
Date of Service December 02, 2022 Admission HPI Per Admitting Provider This is a 32-year-old female status post decompression fusion with continued pain and high inflammatory markers concerning for infection. She is here for I&D. Principal Diagnosis Lumbar seroma Discharge Data Allergies Allergy/AdvReac Type Severity Reaction Status Date / Time coconut Allergy Severe Swelling Verified 12/01/22 10:23 of Lip/Tongue/Throat Iodinated Contrast Media Allergy Severe cardiac Verified 12/01/22 10:23 arrest requiring defibrillator (approximately 2009) human papillomavirus Allergy Intermediate swelling, Verified 12/01/22 10:23 vaccine, quadr burning at [From Gardasil (PF)] injection site tramadol Allergy Intermediate Hives Verified 12/01/22 10:23 Procedures Performed Operation Date: 12/01/22 11:15 Actual Procedures p Lumbar Incision and Drainage(Not Applicable) - Ehsan Smith DO Ordered Studies 12/02/22 12:15 FL spine 1V any level Routine Hospital Course (1) Neurogenic claudication due to lumbar spinal stenosis: Patient went I&D lumbar spine Bandar was taken to orthopedic for postoperative. There is no evidence of gross infection at this time. Cultures remain negative. We will allow her to discharge home today. At this point would not see indication for long-term antibiotic therapy in this there are changes in our cultures. Patient stands agrees. She will follow-up as scheduled in 2 weeks. Total Time Total Time Spent Total Time Spent (In Minutes): 20 minutes Discharge Plan Discharge Items Patient Disposition: Home - Self-Care Reason For Visit: Infection Following a Procedure, Unspecified Discharge Diagnosis: Lumbar seroma Activity: As commented below Non-emergency contact: Primary Care Provider Call non-emergency contact if: you have any medication questions Follow-up/Referrals: Lelia Linares MD [Primary Care Provider] - Diet: Regular Ambulatory Orders: SARS CoV2 RNA(COVID-19)[place] (Routine) Timeframe: 3 Days Facility: [facility] - Location: Laboratory Main [place] Ordered By: Lu Hernandez Attending Provider Instructions: ACTIVITY RECOMMENDATIONS: SELF CARE INSTRUCTIONS AFTER THORACIC/LUMBAR FUSIONS 1. You may walk to your tolerance. It is good exercise for your legs and back. Expect some back and intermittent leg aches and pains. 2. You may perform "counter-top" level activities (make a sandwich, angelika with a project, etc.). 3. No bending or lifting of more than 10 pounds or back twisting of any nature (roll like a log when turning in bed). 4. You may ride in a car for 20-30 minutes at a time. No driving until after your first visit with your doctor. 5. Frequent changes of position and restricting sitting to 30 minutes at a time will help limit the amount of back spasms and stiffness you may experience. 6. You may discontinue the use of ambulatory aids (cane, crutches, etc.) once your strength and confidence allow. 7. You may senior clinical data analyst the shower and let water strike your incision when you arrive home at least once daily. Do not take a tub bath, sit in a hot tub or go into a swimming pool until after your first recheck in the office. SPECIAL CARE INSTRUCTIONS: VERY IMPORTANT TO READ AND REVIEW A. Your surgical incision has been closed with a cosmetic suture under the skin that will dissolve in about 6 weeks. In 14 days, you can use a pair of clean scissors and cut the suture that is left outside of the skin at th e ends of your incision. 1. The small skin tapes can be removed 7 days after surgery if they have not fallen off by that point. 2. You may keep the wound open to air as much as possible to promote healing after post-op day number 5 unless told otherwise by your doctor. 3. If you think the wound looks like it is becoming infected (redness or worsening drainage) and/or you are experiencing fever, chill or worsening back pain and muscle spasms, contact the office so that we may evaluate you as soon as possible. B. Complications are uncommon, but please contact us if you have any signs or symptoms of: 1. wound infection (fever higher than 102.5 degrees F, redness, separation of wound, drainage, or increasing pain from the incision) 2. blood clots in legs (pain, swelling, redness and warmth in legs) 3. urinary tract infection (fever higher than 102.5 degrees F, burning upon urination or increased frequency of urination) 4. nerve problems (inability to walk on your toes or heels, numbness, loss of bowel or bladder control) 5. any other symptoms that concern you C. Please call the office at if you have any concerns or questions about your operation or recovery. D. No smoking! Smoking drastically decreases the chance of a solid fusion. E. Do not take any anti-inflammatory medications (Indocin, Advil, Motrin, Aspirin, Naprosyn, etc.) as these may inhibit the chance of a solid fusion. Tylenol is okay to take for pain. MANAGING PAIN AFTER SPINAL SURGERY 1. Narcotic medication is intended for short-term use and will be provided for surgical pain. Surgical pain usually lasts for a period of 4-6 weeks. Narcotic medication includes Percocet, Vicodin, Darvocet, Tylenol #3 or Lortab. 2. Longer-term pain is more appropriately treated with non-narcotic medication such as Tylenol ES. 3. Muscle spasm is not appropriately treated with narcotics. Muscle relaxers such as Soma, Flexeril or Skelaxin can be used along with Tylenol ES. 4. Remember that we all live with some "aches and pains". This is not unusual or uncommon after an injury or as we get older. a. Back pain is expected and may include muscle spasms for 4 to 6 weeks after surgery. The pain should gradually improve. If the pain worsens for no apparent reason, please contact the office. b. Intermittent leg pain may also be experienced and should not be concerned about unless it worsens for no apparent reason. If so, please contact the office. 5. We will provide appropriate medication within the normal guidelines of their prescribed use. We will also be very cautious and aware of potential abuse and extended duration of patients' medication needs. a. Pain medications are for your comfort and to assist with sleep and rest so that the tissue can heal. They are not provided in order to return to normal activity and should not be used through the day. To do so or worsening pain at night can result from ongoing tissue damage and development of tolerance to the prescribed medicine. 6. Please allow 2-3 days to process refills. Prescriptions will not be mailed but must be picked up at the office. FOLLOW UP VISIT: Keep your scheduled follow-up appointment. Any questions, please call the office at . Pending Studies at Discharge: No Stand-Alone Forms: [employer], Smoking Cessation Medications and DE Order Prescriptions: New oxycodone 5 mg tablet 5 mg PO Q6H PRN (Reason: pain) Qty: 30 0RF Continued gabapentin 800 mg Tablet 800 mg PO TID albuterol sulfate 90 mcg/actuation Hfa Aerosol Inhaler 1 inh INHALATION QID PRN (Reason: sob) meloxicam 7.5 mg Tablet 15 mg PO QPM methocarbamol 750 mg Tablet 750 mg PO QID desvenlafaxine succinate [Pristiq] 50 mg Tablet Extended Release 24 Hr 50 mg PO QAM Discharge Orders: Discharge Order (Routine); Ordered 12/02/22 Ordered By: Ehsna Smith Admission Data Admit Date/Time: 12/01/22 13:15 Attending Provider: Ehsan Smith Admit Provider: Ehsan Smith Primary Care Provider: Lelia Linares
== END 2022-12-02 15:23 | disposition home or self-care (01) ==
LOC: ASU 09:57 → 3E 09:57